=== PATIENT | male | born 1970 | race Caucasian/White ===

== ENCOUNTER 2017-06-09 05:58 | Emergency (ER) | payer OTHER ==
--- NOTE | 2017-06-09 06:22 | EDPHY ---
H & P Stated Complaint: Left arm numbness Time Seen by Provider: 06/09/17 06:02 HPI/ROS: Chief Complaint: Left fingers numb, testicular pain HPI: 46-year-old male presenting this morning with 2 complaints. First he is complaining of left testicular pain and swelling. Patient states he has a history of a hydrocele on the left. He was struck in the groin with a soccer ball yesterday and believes that the hydrocele may have ruptured. Patient has had increasing pain and swelling since that time. It is mildly warm to touch. Does not have a history of similar swelling in the past. His 2nd complaint is that he woke this morning with the fingers in his left hand being numb. After a few minutes he is began getting tingling in them and it resolved. He went back to bed and woke later with the same sensation once again. He has never had this before. Believes it was in also fingers but is not able to entirely confirmed that. No history of carpal tunnel or other neurologic symptoms in the past. Patient states that at since he has been awake it is gotten significantly improved. He does performed repetitive tasks of typing every day. ROS: 10 point Review of Systems is negative except as noted in the HPI. PMH: Hypo testosterone Social History: No smoking, no alcohol, no recreational drug use Family History: non-contributory Physical Exam: Gen: Awake, Alert, No Distress HEENT: Nose: no rhinorrhea Eyes: PERRLA, EOMI Mouth: Moist mucosa Neck: Supple, no JVD Chest: nontender, lungs clear to auscultation Heart: S1, S2 normal, no murmur Abd: Soft, non-tender, no guarding Genital: Left scrotum is markedly swollen, is not warm to the touch, the testis is high riding in tender to the touch. There is no erythema or warmth. Back: no CVA tenderness, no midline tenderness Ext: no edema, non-tender, sensations intact in the radial, median, and ulnar nerve distribution bilaterally. Capillary refills less than 2 seconds. Skin: no rash Neuro: CN II-XII intact, Sensation grossly intact, Strength 5/5 in bilateral upper and lower extremities - Personal History Current Tetanus/Diphtheria Vaccine: Yes Current Tetanus Diphtheria and Acellular Pertussis (TDAP): Yes - Medical/Surgical History Hx Asthma: Yes Hx Chronic Respiratory Disease: No Hx Diabetes: No Hx Cardiac Disease: No Hx Renal Disease: No Hx Cirrhosis: No Hx Alcoholism: No Hx HIV/AIDS: No Hx Splenectomy or Spleen Trauma: No Other PMH: bilat knee surgery, right ankle surgery - Social History Smoking Status: Never smoked Constitutional: Initial Vital Signs Temperature (C) 36.8 C 06/09/17 06:03 Heart Rate 74 06/09/17 06:03 Respiratory Rate 18 06/09/17 06:03 Blood Pressure 134/95 H 06/09/17 06:03 O2 Sat (%) 96 06/09/17 06:03 O2 Delivery Mode Room Air Allergies/Adverse Reactions: No Known Allergies Allergy (Verified 06/09/17 06:13) Home Medications: Medication Instructions Recorded Albuterol Hfa Anes Only 07/11/13 Androgel 06/09/17 Medical Decision Making - Diagnostics Imaging Results: Scrotal ultrasound consistent with ruptured hydrocele. There is normal flow to bilateral testes. There is no active bleeding or extravasation. No findings consistent with an infectious process. Study interpreted by Dr. Zimmerman. Imaging: Discussed imaging studies w/ director of recruitment and admissions Radiologist ED Course/Re-evaluation: 46-year-old male with symptoms consistent with a paresthesia in his hand possibly secondary to carpal tunnel were just having slept on it wrong. Scrotal ultrasound is consistent with a ruptured hydrocele. No evidence of infection or torsion or decreased full at this time. Will discharge him with follow up with both his primary care physician and his urologist, return for worsening. Departure - Departure Clinical Impression: Carpal tunnel syndrome, Hydrocele Condition: Good Instructions: Paresthesia (ED), Hydrocele (ED) Additional Instructions: Follow up with urologist in 2-3 days if symptoms are not improving. Follow up with primary care physician regarding evaluation for numbness in her hand. Return to the emergency depart for increasing swelling, pain, numbness, weakness , fevers, chills, or any other concerns. Referrals: Sherif Gonzalez MD [Primary Care Provider] - As per Instructions
[2017-06-09 07:29] VITALS: BP 114/76; PULSE 62; RESP 16; TEMP 97.9; O2SAT 97
== END 2017-06-09 07:29 | disposition home or self-care (01) ==
DX: G56.02 Carpal tunnel syndrome, left upper limb (principal); N43.3 Hydrocele, unspecified; J45.909 Unspecified asthma, uncomplicated